=== PATIENT | female | born 1960 | race Caucasian/White ===

== ENCOUNTER 2018-01-11 09:51 | Emergency (ER) | payer OTHER, SELFPAY ==
[2018-01-11] MEDS ORDERED: Ketorolac Tromethamine 60 MG/2 ML VIAL ONE (10:28)
[2018-01-11] MEDS ORDERED: Ibuprofen 800 MG TAB ONE (10:37)
[2018-01-11 10:52] LABS: Bilirubin Negative (Negative); Blood, Urine Trace (Negative); Glucose, Urine (Dipstick) Negative (Negative); Leukocyte Negative (Negative); Nitrite Negative (Negative); Protein, Urine (Dipstick) Negative (Neg-Trace); Urobilinogen 0.2 mg/dL (0.2-1.0)
[2018-01-11 10:54] LABS: Clarity CLEAR (Clear); Specific Gravity, Urine 1.006 (1.002-1.036)
[2018-01-11 10:55] LABS: Pregnancy Test - Urine (BHCG) Negative (Negative); Pregu Control Background? CLEAR/WHITE (CLR/WHITE); Pregu Control Bar Appear? YES (CONTROL BAR); Specific Gravity 1.006 (1.002-1.036)
[2018-01-11 11:11] LABS: Bacteria/HPF Rare-Few HPF (None Seen); Hyaline Casts/LPF NONE SEEN LPF (0-3 Hyaline); RBC/HPF None Seen HPF (0-3); Squamous Epithelial 0-3 HPF (0-3); WBC/HPF None Seen HPF (0-3)
== END 2018-01-11 11:28 | disposition home or self-care (01) ==
LOC: ERS 09:51
DX: R10.32 Left lower quadrant pain (principal); F41.9 Anxiety disorder, unspecified; F32.9 Major depressive disorder, single episode, unspecified; F43.10 Post-traumatic stress disorder, unspecified; Z79.899 Other long term (current) drug therapy
CPT/HCPCS: 36416; 81003; 81015; 81025; 99283; J1885

== ENCOUNTER → 2018-11-05 | Day surgery (SDC) | payer SELFPAY ==
[~2018-11-05] MED LIST: Dexamethasone 20 MG/5 ML VIAL ONE; Fentanyl 100 MCG/2 ML VIAL ONE; Ketorolac Tromethamine 30 MG/ML VIAL ONE; Lidocaine 1% PF 5 ML VIAL ONE; Metoclopramide HCl 10 MG/2 ML VIAL ONE; Morphine 4 MG/ML VIAL ONE; Ondansetron ODT 4 MG TAB ONE; Ondansetron PF 4 MG/2 ML Vial ONE; PROPOFOL 200 MG/20 ML VIAL ONE; Succinylcholine Chloride 20 MG/ML 10 ml SYRINGE FS ONE
--- NOTE | 2018-11-06 05:37 | HP ---
GI/ER CONSULTATION NOTE REASON FOR CONSULTATION: Esophageal food bolus impaction. HISTORY OF PRESENT ILLNESS: Adilene Palmer is a 57-year-old woman with a past medical history of asthma which is well controlled at this time. She has had a cholecystectomy and a . She states that over about the past year, she has had some chronic heartburn symptoms for which she takes [id number] Prilosec on a p.r.n. basis, which ends up being a about every other day. She says that intermittently for a few months, she will have just very mild transient dysphagia to solids. Last week, she had a worse episode of dysphagia, which lasted for several minutes, but eventually passed on its own. She presented to the emergency department tonight because about 6 hours ago, she was eating some steak and she felt that it got lodged in the upper chest area. There is pain and discomfort associated with this, though no shortness of breath. She seems to be handling her secretions pretty well, but she can not drink any water without it coming right back up. This happened about 6 hours ago. She was given glucagon without any benefit. She has never had a prior EGD. There is no family history of GI malignancy, but she said her father has issues with his swallowing as well. REVIEW OF SYSTEMS: Full review of systems including constitutional, head, eyes, ears, nose, throat, GI, , cardiovascular, respiratory, musculoskeletal, neurologic systems is negative except as noted in the HPI. PAST MEDICAL HISTORY: Asthma, cholecystectomy, . ALLERGIES: IODINE. OUTPATIENT MEDICATIONS: 1. Effexor. 2. Abilify. 3. Prilosec 20 mg p.r.n. (and that being about every other day). SOCIAL HISTORY: No smoking, alcohol, or drug use. FAMILY HISTORY: Her father has had issues with esophageal stricture. There is no family history of GI malignancy. PHYSICAL EXAMINATION: GENERAL: A 57-year-old woman, lying in bed comfortably, in no acute distress. SKIN: No jaundice. No rashes were visible or palpable. EYES: No scleral icterus. Extraocular movements intact. ENT: Mucous membranes moist. No oral lesions. LYMPH: No submandibular or supraclavicular lymphadenopathy. THYROID: Nontender to palpation. HEART: Regular rate and rhythm. LUNGS: Clear to auscultation bilaterally. ABDOMEN: Bowel sounds present. Soft and nontender to palpation throughout. No masses or organomegaly appreciated. EXTREMITIES: No peripheral edema. VESSELS: Radial pulses 2+ bilaterally. NEUROLOGIC: Cranial nerves II through XII intact bilaterally. No focal deficits. MENTAL: She is alert, fully oriented, pleasant, conversational, able to give a detailed coherent history. ASSESSMENT AND PLAN: 1. Esophageal food bolus impaction. 2. Chronic heartburn. The patient's presentation is consistent with esophageal food bolus impaction. She is unable to tolerate liquids, and so we will plan to perform EGD urgently tonight. I discussed procedure in detail with the patient. Depending on findings, we may get esophageal biopsies or perform esophageal dilation, consider going up on her acid suppression, etc. Anticipate she will be able to be discharged back home following the procedure. Job ID: [id number]
--- NOTE | 2018-11-06 07:12 | OP ---
DATE OF PROCEDURE: 11/06/2018 GI ENDOSCOPY NOTE RADIOLOGIST PHYSICIAN SURGEON: None. PROCEDURE PERFORMED: Esophagogastroduodenoscopy with foreign body removal. INDICATION: Esophageal food bolus impaction. MEDICATIONS: See Anesthesia record. FINDINGS: After discussion of the risks, benefits, and alternatives of the procedure, informed consent was obtained and witnessed. Pre-endoscopic cardiopulmonary examination was satisfactory. Time-out was performed before sedation was achieved. Sedation was achieved with Anesthesia assistance in the endoscopy unit. The patient was endotracheally intubated for airway protection and placed in a left lateral decubitus position. A Pentax adult upper endoscope was placed into the oropharynx and passed through the cricopharyngeus under direct visualization. The proximal and mid esophageal mucosa appeared normal. In the distal esophagus at about 35 cm from the incisors, we encountered a large food bolus. This was a piece of steak. Initial attempts to grasp this with a Beck Net were unsuccessful due to the significant size and depth of the food bolus. We then used the rat-tooth forceps and spent quite a bit of time extracting smaller pieces of the food bolus. We briefly tried the 4-pronged grasper as well, but the rat-tooth forceps were more effective at removing this foreign body piecemeal. Thankfully, we were eventually able to bring out most of the very large chunk of steak in one piece with a rat-toothed forceps, and the esophageal obstruction was completely relieved. The endoscope was then passed back down the esophagus for examination. There is severe maceration at the GE junction with distal esophagitis and a circumferential fibrotic stricture. This appears benign. There is no deep ulceration in the area. There is no evidence of any mass lesion in the area. Due to this severe maceration and friability, I did not perform dilation of the strictured area on tonight's exam. The endoscope was passed beyond this area, and forward and retroflex views of the entire gastric mucosa were obtained. The gastric mucosa appeared normal. The endoscope was passed through the pylorus and then the first and second portions of the duodenum, which also appeared normal. The upper endoscope was then completely withdrawn, and the patient was allowed to recover. The patient tolerated the procedure well. There were no immediate postprocedure complications. IMPRESSION: 1. Food impaction at 35 cm from the incisors, now removed. 2. Benign fibrotic circumferential esophageal stricture at the gastroesophageal junction at 35 cm, with associated maceration. No dilation performed on this exam. 3. Otherwise normal esophagogastroduodenoscopy. RECOMMENDATIONS: 1. Pantoprazole 40 mg by mouth twice daily. 2. We will plan to bring her back as an outpatient for repeat EGD in 2 to 3 weeks for esophageal dilation. 3. Chew food thoroughly. Job ID: [id number]
== END ==
LOC: ERS 20:28 → SDC/OP 23:58 → ERS 23:58
PROVIDERS: ATTEND Internal Medicine
PROC: 0DC58ZZ Extirpation of Matter from Esophagus, Via Natural or Artificial Opening Endoscopic (ICD-10-PCS; principal; 2018-11-05)
DX: T18.128A Food in esophagus causing other injury, initial encounter (principal); K22.2 Esophageal obstruction; J45.909 Unspecified asthma, uncomplicated; Z79.899 Other long term (current) drug therapy; Z91.041 Radiographic dye allergy status
CPT/HCPCS: 96372; 96374; J1100; J1610; J1885; J2001; J2270; J2405; J2704; J2765; J3010; Q0162

== ENCOUNTER 2020-05-26 19:01 | Day surgery (SDC) | payer SELFPAY ==
[~2020-05-26 19:01] MED LIST changes: +EPHEDRINE 25 MG/5 ML SYRINGE ONE; -Fentanyl 100 MCG/2 ML VIAL ONE; +Glycopyrrolate 0.2 MG/ML 5 ML SYRINGE ONE; -Ketorolac Tromethamine 30 MG/ML VIAL ONE; -Metoclopramide HCl 10 MG/2 ML VIAL ONE; -Morphine 4 MG/ML VIAL ONE; -Ondansetron ODT 4 MG TAB ONE; +PHENYLEPHRINE-NS 100 MCG/ML 10 ML SYRINGE ONE
[2020-05-26] MEDS ORDERED: Ondansetron PF 4 MG/2 ML Vial ONE (19:35)
[2020-05-26 22:19] LABS: #Eosinphils 0.4 thou/uL (0.0-0.7); #Monocytes 0.5 thou/uL (0.11-0.59); #Neutrophils 5.3 thou/uL (1.40-6.50); %Basophils 0.2 % (0.0-1.0); %Eosinophils 6.1 % (0.0-10.0); %Lymphocytes 13.6 % (21.0-51.0); %Monocytes 6.4 % (0.0-10.0); %Neutrophils 73.7 % (42.0-75.0); Hemoglobin 13.3 g/dL (12.0-16.0); Mean Corpuscular HGB CONC 31.6 g/dL (32.0-36.0); Mean Corpuscular Hemoglobin 27.8 pg (27.0-31.0); Mean Corpuscular Volume 87.8 fL (78.0-98.0); Platelet Count 247 thou/uL (130-400); RBC Distribution Width 12.5 % (11.5-14.5); Red Blood Cell (RBC) Count 4.78 mill/uL (4.20-5.40); White Blood Cell (WBC) Count 7.2 thou/uL (4.8-10.8)
[2020-05-26] MEDS ORDERED: Fentanyl 100 MCG/2 ML VIAL ONE (22:35)
[2020-05-26 22:47] LABS: ALT (SGPT) 35 U/L (8-55); AST (SGOT) 17 U/L (5-34); Albumin 3.9 g/dL (3.4-4.8); Alkaline Phosphatase 83 U/L (40-110); Anion Gap 12 mmol/L (10-20); BUN (Urea Nitrogen) 13 mg/dL (9.8-20.1); Bilirubin, Total 0.5 mg/dL (0.2-1.2); Calc. Creatinine Clearance 0 mL/min (70-130); Calcium 8.1 mg/dL (7.8-10.44); Carbon Dioxide 22 mmol/L (23-31); Chloride 108 mmol/L (98-107); Estimated GFR-MDRD 84; Globulin 2.9 g/dL (2.4-3.5); Glucose 87 mg/dL (80-115); Potassium 3.8 mmol/L (3.5-5.1); Protein, Total 6.8 g/dL (6.0-8.3); Sodium 138 mmol/L (136-145)
[2020-05-27] MEDS ORDERED: Sodium Chloride For Inhalation 0.9% 3 ML NEB ONE (00:06)
[2020-05-27] MEDS ORDERED: HYDROcodone/Acetaminophen 5/325 mg Tablet ONE (00:48)
--- NOTE | 2020-05-27 02:02 | HP ---
REASON FOR CONSULTATION: Esophageal food bolus impaction. CONSULTING PROVIDER: Drew Leon MD HISTORY OF PRESENT ILLNESS: The patient is a 59-year-old female with past medical history of asthma, depression, herpes simplex of the cervix and esophageal stricture status post food bolus impaction in October 2018, presenting with complaints of dysphagia. She states that she was in her usual state of health until approximately 4 p.m. earlier today when she was eating beef roast, when she swallowed the food and felt like it got stuck at the level of the xiphoid process. After which point, attempts to drink Coke, water, eating butter, and coughing forcefully were unsuccessful in dislodging the food bolus. At which point, the patient was also unable to tolerate her own secretions. This was associated with increased substernal chest discomfort located again at the xiphoid process, characterized as a pressure-type sensation, but not really reaching any sort of increased severity. On further questioning the patient, she states that she has been getting "choked" with the consumption of solid meals that would occur approximately 2 to 3 times per month over the last 2 to 3 years. She also endorses increased substernal pyrosis and regurgitation type symptoms associated with acid reflux, for which the patient takes omeprazole 20 mg daily right before breakfast. Otherwise, the patient currently denies any fevers, chills, hematemesis, melena, hematochezia, odynophagia, diarrhea, constipation, or weight loss. Of note, the patient underwent EGD in October 2018 due to a food bolus impaction. A large piece of steak was noted at approximately 35 cm past the incisors and successfully extracted during that procedure. During that procedure, a distal esophageal stricture was seen, but given the amount of ulceration and maceration of the esophageal mucosa, dilation was not performed at that time with plans to repeat the EGD at a later date. Unfortunately, the patient did not follow with Dr. Padgett in the GI Clinic after this procedure, so no further procedures were performed. REVIEW OF SYSTEMS: A 10-category review of systems was obtained with all responses negative except for the pertinent positives as listed in HPI. PAST MEDICAL HISTORY: As per HPI. PAST SURGICAL HISTORY: Cholecystectomy, , hysterectomy, rectal reconstruction, and EGD with food bolus extraction. FAMILY HISTORY: Denies any GI malignancies. SOCIAL HISTORY: Denies any tobacco, alcohol, or illicit drug use. OUTPATIENT MEDICATIONS: 1. Effexor 350 mg daily. 2. Abilify 10 mg daily. ALLERGIES: IODINE. PHYSICAL EXAMINATION: VITAL SIGNS: Temperature 97.9, pulse 67, blood pressure 137/86, respiratory rate 18, and saturating 97% on room air. GENERAL: The patient was lying in bed, in no acute distress. Alert and oriented x4. HEENT: Normocephalic and atraumatic. NECK: Supple. No JVD or scleral icterus noted. CARDIOVASCULAR: Regular rate and rhythm with no discernible murmurs, gallops, or rubs. RESPIRATORY: Mild resistance to air flow was noted on inspiration with diffuse expiratory wheezing heard in all lung pacheco. ABDOMEN: Normoactive bowel sounds. Soft, nontender, and nondistended. EXTREMITIES: No cyanosis, clubbing, or edema. LABORATORY DATA: No current studies are available for review. IMAGING DATA: No current studies are available for review. ASSESSMENT AND PLAN: The patient is a 59-year-old female with past medical history of asthma, HSV of the cervix, depression, and esophageal stricture status post food bolus extraction in October 2018, presenting with a recurrence of food bolus impaction. Food bolus of impaction/esophageal obstruction. The patient is presenting with acute onset of esophageal obstruction secondary to food bolus impaction that she sustained at 4 p.m. earlier today with consuming a larger portion of beef pot roast. Attempts to dislodge the food bolus were unsuccessful with consumption of coke, water, eating butter, and forceful coughing. With the inability to tolerate her own secretions, then prompted her to come to [facility] ER for further evaluation. At this time, her symptoms are most consistent with esophageal food bolus impaction and she will need emergent esophagogastroduodenoscopy for removal. Recommendations; 1. Would continue the patient on n.p.o. status in anticipation of the esophagogastroduodenoscopy later tonight. 2. Would recommend an albuterol nebulizer treatment prior to the esophagogastroduodenoscopy given the diffuse wheezing on physical examination and history of asthma. 3. Would obtain routine labs including CBC and CMP. 4. Further recommendations to follow upper endoscopy. We will continue to follow. Please call with any questions. Job ID: [id number]
--- NOTE | 2020-05-27 02:45 | OP ---
DATE OF PROCEDURE: 05/26/2020 PROCEDURES PERFORMED: Esophagogastroduodenoscopy with removal of foreign body. INDICATION FOR PROCEDURE: Food bolus impaction within the esophagus. DESCRIPTION OF PROCEDURE: After the risks and benefits of the procedure were explained to the patient including risks of bleeding, infection, perforation, reactions to anesthesia, aspiration and/or pain, informed consent was obtained. The patient was then taken to the endoscopy suite, where general anesthesia was administered followed by endotracheal tube intubation. Once the patient was adequately intubated and sedated, the standard gastroscope was introduced into the mouth with intubation of the esophagus, stomach, and the proximal small intestines with the findings listed below. The patient tolerated the procedure well with no immediate perioperative complications. Upon conclusion of the procedure, all equipment was removed from the patient and she was transferred to PACU in satisfactory condition. FINDINGS: Esophagus: Normal-appearing mucosa was seen in the proximal esophagus; however, a large obstructive food bolus was encountered at approximately 30 cm past the incisors and was unable to be traversed with the gastroscope or gently pushed into the stomach. Implying a four pronged forceps, the food bolus/pot roast was then removed in a piecemeal fashion, but had difficulty obtaining purchase on the fibrous meats trans itself as such a raptor tooth forceps was then used with a better ability to grasp the food bolus, which was then successfully extracted after multiple attempts. Upon extraction of the food bolus, adequate visualization of the remainder of the esophagus was then performed with normal-appearing mucosa seen within the mid esophagus; however, a nonobstructive fibrous ring was encountered at approximately 35 to 37 cm past the incisors with increased mucosal erythema, edema, and mucosal sloughing of the esophageal lining. There was no evidence of bleeding in this region, but given the mucosal sloughing, it would increase her risk of perforation, so dilation was not performed at this time. Both the diaphragmatic pinch and gastroesophageal junction were well seen at approximately 38 cm past the incisors. There was no evidence of mass lesions, polyps, or active/recent bleeding. Stomach: Large amount of retained food was seen throughout the entire stomach significantly limiting visualization of the mucosa seen (approximately 50%). Normal-appearing mucosa was seen in the gastric cardia, fundus, body, greater curvature, antrum, and incisura. There was no evidence of erosions, ulcerations, mass lesions, or active/recent bleeding. Duodenum: Normal-appearing mucosa was seen in both the duodenal bulb and second portion of the duodenum. There was no evidence of erosions, ulcerations, mass lesions, or active/recent bleeding. IMPRESSION: 1. A large food bolus was encountered at 30 cm past the incisors and successfully removed with a combination of four prong forceps and raptor forceps. 2. A nonobstructive fibrous ring was seen at 35 to 36 cm past the incisors with significant mucosal edema and mucosal sloughing; no dilation was performed during this examination. 3. A large amount of retained food seen throughout the entire stomach significantly limiting visualization. RECOMMENDATIONS: 1. Would place the patient on omeprazole 40 mg daily 30 to 45 minutes before breakfast for probable acid reflux-mediated Schatzki ring. 2. Strongly encourage adequate chewing of food before swallowing. 3. Would have the patient follow up in the GI Clinic within the next 3 weeks. 4. Repeat evaluation and repeat esophagogastroduodenoscopy at that time for dilation of the esophageal stricture. Given successful extraction of the esophageal obstruction, we will sign off at this time. Please call with any questions. Job ID: [id number]
== END 2020-05-27 02:07 | disposition home or self-care (01) ==
LOC: ERS 19:01 → SDC 22:45
PROVIDERS: ATTEND Internal Medicine
PROC: 0DC58ZZ Extirpation of Matter from Esophagus, Via Natural or Artificial Opening Endoscopic (ICD-10-PCS; principal; 2020-05-26)
DX: T18.128A Food in esophagus causing other injury, initial encounter (principal); K22.2 Esophageal obstruction; J45.909 Unspecified asthma, uncomplicated; F41.9 Anxiety disorder, unspecified; F32.9 Major depressive disorder, single episode, unspecified; F43.10 Post-traumatic stress disorder, unspecified; Z79.899 Other long term (current) drug therapy; X58.XXXA Exposure to other specified factors, initial encounter
CPT/HCPCS: 36415; 80053; 85025; 96374; 96375; J1100; J1610; J2405; J2704; J3010; J7620

== ENCOUNTER 2022-12-25 10:13 | Day surgery (SDC) | payer SELFPAY ==
[2022-12-25] MEDS ORDERED: Ondansetron PF 4 MG/2 ML Vial ONE ×2 (12:04→14:26)
[2022-12-25] MEDS ORDERED: Fentanyl 100 MCG/2 ML VIAL ONE (14:17)
[2022-12-25] MEDS ORDERED: PHENYLEPHRINE-NS 100 MCG/ML 10 ML SYRINGE ONE (14:17)
[2022-12-25] MEDS ORDERED: Lidocaine 1% PF 5 ML VIAL ONE (14:26)
[2022-12-25] MEDS ORDERED: ePHEDrine 50 MG/ML VIAL ONE (14:26)
[2022-12-25] MEDS ORDERED: Succinylcholine Chloride 100 MG/5 ML SYRINGE FS ONE (14:26)
[2022-12-25] MEDS ORDERED: Dexamethasone 20 MG/5 ML VIAL ONE (14:26)
[2022-12-25] MEDS ORDERED: PROPOFOL 200 MG/20 ML VIAL ONE (14:26)
[2022-12-25] MEDS ORDERED: Ipratropium/Albuterol 3 ML NEB ONE (15:06)
== END 2022-12-25 16:45 | disposition home or self-care (01) ==
LOC: ERS 10:13 → SDC 14:00
PROVIDERS: ATTEND Internal Medicine Gastroenterology
PROC: 0DB38ZX Excision of Lower Esophagus, Via Natural or Artificial Opening Endoscopic, Diagnostic (ICD-10-PCS; principal; 2022-12-25)
PROC: 0DB78ZX Excision of Stomach, Pylorus, Via Natural or Artificial Opening Endoscopic, Diagnostic (ICD-10-PCS; principal; 2022-12-25)
PROC: 0DC38ZZ Extirpation of Matter from Lower Esophagus, Via Natural or Artificial Opening Endoscopic (ICD-10-PCS; principal; 2022-12-25)
DX: T18.128A Food in esophagus causing other injury, initial encounter (principal); K29.50 Unspecified chronic gastritis without bleeding; K22.10 Ulcer of esophagus without bleeding; M19.90 Unspecified osteoarthritis, unspecified site; J45.909 Unspecified asthma, uncomplicated; Z86.16 Personal history of COVID-19; Z91.041 Radiographic dye allergy status; X58.XXXA Exposure to other specified factors, initial encounter
CPT/HCPCS: 88305; 88342; 96374; 96375; J1100; J1611; J2405; J2704; J3010; J3490; J7620

== ENCOUNTER 2023-02-28 14:19 | Emergency (ER) | payer SELFPAY ==
[2023-02-28 16:20] LABS: #Eosinphils 0.2 thou/uL (0.0-0.7); #Lymphocytes 1.2 thou/uL (1.20-3.40); #Monocytes 0.5 thou/uL (0.11-0.59); %Basophils 0.6 % (0.0-1.0); %Eosinophils 3.6 % (0.0-10.0); %Monocytes 10.2 % (0.0-10.0); %Neutrophils 61.6 % (42.0-75.0); Hemoglobin 14.1 g/dL (12.0-16.0); Mean Corpuscular HGB CONC 33.1 g/dL (32.0-36.0); Mean Corpuscular Hemoglobin 29.2 pg (27.0-31.0); Mean Corpuscular Volume 88.1 fl (78.0-98.0); Mean Platelet Volume 7.6 fL (7.4-10.4); Platelet Count 229 10x3/uL (130-400); Red Blood Cell (RBC) Count 4.83 mill/uL (4.20-5.40); White Blood Cell (WBC) Count 4.9 10x3/uL (4.8-10.8)
[2023-02-28 16:41] LABS: ALT (SGPT) 41 U/L (8-55); AST (SGOT) 33 U/L (5-34); Albumin 4.3 g/dL (3.4-4.8); Alkaline Phosphatase 110 U/L (40-110); Anion Gap 14 mmol/L (10-20); BUN (Urea Nitrogen) 10 mg/dL (9.8-20.1); Bilirubin, Total 0.7 mg/dL (0.2-1.2); CK (CPK) 112 U/L (29-168); Calc. Creatinine Clearance 0 mL/min (70-130); Calcium 9.4 mg/dL (7.8-10.44); Carbon Dioxide 26 mmol/L (23-31); Chloride 105 mmol/L (98-107); Estimated GFR 76; Globulin 2.7 g/dL (2.4-3.5); Glucose 99 mg/dL (80-115); Lipase 26 U/L (8-78); Potassium 4.3 mmol/L (3.5-5.1); Sodium 141 mmol/L (136-145)
== END 2023-02-28 17:45 | disposition home or self-care (01) ==
LOC: ERS 14:19
DX: R53.81 Other malaise (principal)
CPT/HCPCS: 36415; 71045; 80053; 82550; 83690; 84484; 85025; 93005

== ENCOUNTER 2023-09-29 14:05 | Emergency (ER) | payer SELFPAY ==
[2023-09-29] MEDS ORDERED: Diazepam 5 MG TAB ONE (15:24)
[2023-09-29] MEDS ORDERED: Dexamethasone 10 MG/ML VIAL ONE (15:24)
[2023-09-29] MEDS ORDERED: Ketorolac Tromethamine 30 MG/ML VIAL ONE (15:24)
== END 2023-09-29 16:19 | disposition home or self-care (01) ==
LOC: ERS 14:05
DX: S39.012A Strain of muscle, fascia and tendon of lower back, initial encounter (principal); X50.1XXA Overexertion from prolonged static or awkward postures, initial encounter
CPT/HCPCS: 96372; 99283; J1100; J1885

== ENCOUNTER 2024-05-18 20:08 | Emergency (ER) | payer OTHER, MEDICAID | END 2024-05-18 22:50 | disposition home or self-care (01) | LOC: ERS 20:08 | DX: U07.1 COVID-19 (principal) | CPT/HCPCS: 71046 ==

== ENCOUNTER 2024-11-17 10:05 | Outpatient (CLI) | payer OTHER, MEDICAID | END 2024-11-17 10:06 | disposition home or self-care (01) | LOC: RAD 10:05 | PROVIDERS: ATTEND Internal Medicine | DX: R06.00 Dyspnea, unspecified (principal) | CPT/HCPCS: 71046 ==

== ENCOUNTER 2025-07-22 12:49 | Outpatient (CLI) | payer MEDICARE, OTHER | END 2025-07-22 12:50 | disposition home or self-care (01) | LOC: BICMAMMO 12:49 | PROVIDERS: ATTEND Family Medicine | DX: Z12.31 Encounter for screening mammogram for malignant neoplasm of breast (principal); Z80.3 Family history of malignant neoplasm of breast; Z85.41 Personal history of malignant neoplasm of cervix uteri | CPT/HCPCS: 77063; 77067 ==